=== PATIENT | male | born 1980 | race African-American/Black ===

== ENCOUNTER 2017-05-09 02:13 | Emergency (ER) | payer OTHER ==
[~2017-05-09] VITALS: Ht 180.3 cm; Wt 123.4 kg
[2017-05-09 02:17] VITALS: Ht 180.3 cm; Wt 123.4 kg
[2017-05-09 03:06] LABS: PLATELET COUNT 245 x10^3mcL (130-400)
[2017-05-09 03:13] LABS: RED CELL DISTRIBUTION WIDTH 15.4 % (11.5-14.5)
[2017-05-09 03:48] LABS: CALCIUM 8.4 mg/dL (8.5-10.1); CARBON DIOXIDE 29.3 mmol/L (21-32); CHLORIDE SERUM 102 mmol/L (98-107); CREATININE SERUM 0.9 mg/dL (0.7-1.3); GFR1 > 60 mL/min; GLUCOSE SERUM 122 mg/dL (74-106); POTASSIUM SERUM 3.9 mmol/L (3.5-5.1); SODIUM SERUM 139 mmol/L (136-145)
[2017-05-09 03:53] LABS: ALBUMIN 3.7 g/dL (3.4-5.0); ALKALINE PHOSPHATASE 53 U/L (46-116); ALT/SGPT 29 U/L (16-63); AST/SGOT 18 U/L (15-37); BILIRUBIN TOTAL 0.76 mg/dL (0.20-1.00); TOTAL PROTEIN, SERUM 7.3 g/dL (6.4-8.2)
[2017-05-09 05:21] LABS: AMPHETAMINE QUAL UR NONE DETECTED (NEG <=1000)
[2017-05-09 07:33] VITALS: BP 123/73
== END 2017-05-09 07:33 | disposition home or self-care (01) ==
LOC: ED 02:13
PROVIDERS: Emergency Medicine
DX: S06.0X0A Concussion without loss of consciousness, initial encounter (principal); W22.8XXA Striking against or struck by other objects, initial encounter; Y93.89 Activity, other specified; Y92.89 Other specified places as the place of occurrence of the external cause; Y99.8 Other external cause status
CPT/HCPCS: 87491; 87591; G0480; J0696; J2001; Q0162